=== PATIENT | male | born 1965 | race Caucasian/White ===

== ENCOUNTER 2018-02-01 12:00 | Inpatient (IN) | payer OTHER ==
[~2018-02-01] VITALS: Ht 167.6 cm; Wt 72.6 kg
[~2018-02-01 12:00] MED LIST: ALPRAZOLAM XR0.5 MG PO; BUPROPION PO; CLONAZEPAM0.5 MG PO; COZAAR25 MG PO; NABUMETONE750 MG PO; NEURONTIN300 MG PO
[2018-02-10] MEDS ORDERED: RESTORIL30 M1 PO (15:14)
[2018-02-10] MEDS ORDERED: PERCOCET 5-3251 EACH PO (15:14)
[2018-02-10] MEDS ORDERED: COLACE100 MG PO (15:14)
== END 2018-02-11 14:24 | disposition home or self-care (01) | DRG 454 ==
LOC: SURH 02-08 07:15 → O/R 02-10 05:40 → SURH 02-10 07:15
PROVIDERS: Orthopaedic Surgery Orthopaedic Surgery of the Spine
PROC: 0RG2071 Fusion of 2 or more Cervical Vertebral Joints with Autologous Tissue Substitute, Posterior Approach, Posterior Column, Open Approach (ICD-10-PCS; 2018-02-10)
PROC: 0RT30ZZ Resection of Cervical Vertebral Disc, Open Approach (ICD-10-PCS; 2018-02-10)
PROC: 07DS3ZZ Extraction of Vertebral Bone Marrow, Percutaneous Approach (ICD-10-PCS; 2018-02-10)
PROC: 0RG20A0 Fusion of 2 or more Cervical Vertebral Joints with Interbody Fusion Device, Anterior Approach, Anterior Column, Open Approach (ICD-10-PCS; principal; 2018-02-10 18:15)
DX: M47.12 Other spondylosis with myelopathy, cervical region (principal); M50.01 Cervical disc disorder with myelopathy, high cervical region; I10 Essential (primary) hypertension

== ENCOUNTER 2020-08-09 09:30 | Inpatient (IN) | payer OTHER ==
[~2020-08-09] VITALS: Ht 167.6 cm; Wt 76.2 kg
[~2020-08-09 09:30] MED LIST changes: +COLACE100 MG PO; +PERCOCET 5-3251 EACH PO; +RESTORIL30 M1 PO
[2020-08-15] MEDS ORDERED: BUPROPION XL300 MG (08:05)
[2020-08-15] MEDS ORDERED: RISPERIDONE2 MG (08:06)
[2020-08-15] MEDS ORDERED: CLONAZEPAM2 MG (08:06)
[2020-08-15] MEDS ORDERED: AMOX-CLAV 875-1 EAC1 PO (11:05)
[2020-08-15] MEDS ORDERED: MEDROLPACK PO (11:06)
[2020-08-15] MEDS ORDERED: COLACE100 MG PO (11:06)
[2020-08-15] MEDS ORDERED: GABAPENTIN800 M1 PO (11:06)
[2020-08-15] MEDS ORDERED: PERCOCET 5-3251 EACH PO (11:07)
[2020-08-15] MEDS ORDERED: DIAZEPAM5 MG PO (11:07)
== END 2020-08-16 12:04 | disposition home or self-care (01) | DRG 552 ==
LOC: O/R 08-15 04:45 → PED 08-15 04:45 → SURH 08-15 09:30 → PED 08-15 15:56 → OB/GYN 08-15 16:09 → PED 08-15 16:14 → SURH 08-15 19:30 → PED 08-16 12:04
PROVIDERS: ADMIT Orthopaedic Surgery Orthopaedic Surgery of the Spine; ATTEND Orthopaedic Surgery Orthopaedic Surgery of the Spine
DX: M48.062 Spinal stenosis, lumbar region with neurogenic claudication (principal); M51.36 Other intervertebral disc degeneration, lumbar region; I10 Essential (primary) hypertension

== ENCOUNTER 2023-01-07 11:30 | Inpatient (IN) | payer OTHER ==
[~2023-01-07] VITALS: Ht 167.6 cm; Wt 73.5 kg
[~2023-01-07 11:30] MED LIST changes: +AMOX-CLAV 875-1 EAC1 PO; +BUPROPION XL300 MG; +CLONAZEPAM2 MG; +DIAZEPAM5 MG PO; +GABAPENTIN800 M1 PO; +MEDROLPACK PO; +RISPERIDONE2 MG
[2023-01-12] MEDS ORDERED: PERCOCET 5-3251 EACH PO (07:35)
[2023-01-12] MEDS ORDERED: MEDROLPACK PO (07:35)
[2023-01-12] MEDS ORDERED: NEURONTIN800 MG PO (07:36)
[2023-01-12] MEDS ORDERED: COLACE100 MG PO (07:36)
[2023-01-12] MEDS ORDERED: AMOX-CLAV 875-1 EACH PO (07:36)
[2023-01-13 07:33] LABS: HEMATOCRIT 35.4 % (39.0-48.0); HEMOGLOBIN 11.9 g/dL (13-16.00); MEAN CELL VOLUME 82.7 fL (80.0-100.00); MEAN CORPUSCULAR HEMOGLOBIN 27.9 pg (27.00-32.0); MEAN CORPUSCULAR HGB CONC 33.7 g/dl (32.0-36.0); PLATELET COUNT 180 K/uL (150-450); RED BLOOD COUNT 4.29 M/uL (4.00-6.00); RED CELL DISTRIBUTION WIDTH 14.8 % (11.5-14.5)
[2023-01-13 07:59] LABS: CALCIUM 7.8 mg/dL (8.5-10.1); CREATININE SERUM 1.01 mg/dL (0.70-1.30); GFR 76.14; POTASSIUM 4.24 mEq/L (3.5-5.1)
== END 2023-01-14 10:38 | disposition home or self-care (01) | DRG 455 ==
LOC: SURH 01-12 04:35 → O/R 01-12 04:35 → SURH 01-12 07:00
PROVIDERS: ADMIT Orthopaedic Surgery Orthopaedic Surgery of the Spine; ATTEND Orthopaedic Surgery Orthopaedic Surgery of the Spine
PROC: 0SG3071 Fusion of Lumbosacral Joint with Autologous Tissue Substitute, Posterior Approach, Posterior Column, Open Approach (ICD-10-PCS; 2023-01-12)
PROC: 0ST40ZZ Resection of Lumbosacral Disc, Open Approach (ICD-10-PCS; 2023-01-12)
PROC: 0QB30ZZ Excision of Left Pelvic Bone, Open Approach (ICD-10-PCS; 2023-01-12)
PROC: 07DR0ZZ Extraction of Iliac Bone Marrow, Open Approach (ICD-10-PCS; 2023-01-12)
PROC: 4A11X4G Monitoring of Peripheral Nervous Electrical Activity, Intraoperative, External Approach (ICD-10-PCS; 2023-01-12)
PROC: 0SG30A0 Fusion of Lumbosacral Joint with Interbody Fusion Device, Anterior Approach, Anterior Column, Open Approach (ICD-10-PCS; principal; 2023-01-12 07:00)
DX: M43.17 Spondylolisthesis, lumbosacral region (principal); M48.07 Spinal stenosis, lumbosacral region; M54.17 Radiculopathy, lumbosacral region; Z20.822 Contact with and (suspected) exposure to COVID-19

== ENCOUNTER 2025-03-07 07:00 | Day surgery (SDC) | payer OTHER ==
[2025-03-02 11:10] LABS: COVID-19 AG NEGATIVE (NEGATIVE)
[~2025-03-07 07:00] MED LIST changes: +AMOX-CLAV 875-1 EACH PO; +CEFAZOLIN SODIUM 1,000 MG VIAL ONE; +NEURONTIN800 MG PO; +VANCOMYCIN HCL 1,000 MG VIAL ONE
[2025-03-07] MEDS ORDERED: METHYLPREDNISOLONE SOD SUCC 125 MG VIAL ONE (07:03)
[2025-03-07] MEDS ORDERED: CHLORHEXIDINE GLUCONATE 120 ML BOTTLE TOP ONE (07:03)
[2025-03-07] MEDS ORDERED: PERCOCET 5-3251 EACH PO (07:15)
[2025-03-07] MEDS ORDERED: MEDROLPACK PO (07:15)
[2025-03-07] MEDS ORDERED: COLACE100 MG PO (07:16)
[2025-03-07] MEDS ORDERED: AMOX-CLAV 875-1 EACH PO (07:16)
[2025-03-07] MEDS ORDERED: ZOFRAN8 MG PO (07:16)
[2025-03-07] MEDS ORDERED: VANCOMYCIN HCL 1,000 MG VIAL ONE (07:37)
[2025-03-07] MEDS ORDERED: HEMOSTATIC MATRIX WITH THROMBIN KIT TOP ONE (07:53)
[2025-03-07] MEDS ORDERED: LIDOCAINE HCL 1%/EPINEPHRINE 20ML VIAL IJ ONE (07:53)
[2025-03-07] MEDS ORDERED: SUGAMMADEX SODIUM 200 MG/2 ML VIAL IV ONE (09:06)
== END 2025-03-07 12:40 | disposition home or self-care (01) ==
LOC: CIR.AMB 07:00
PROVIDERS: ATTEND Orthopaedic Surgery Orthopaedic Surgery of the Spine
DX: M46.1 Sacroiliitis, not elsewhere classified (principal); M54.17 Radiculopathy, lumbosacral region
CPT/HCPCS: 27279; C1776